=== PATIENT | female | born 1975 | race Caucasian/White ===

== ENCOUNTER 2017-11-15 11:12 | Emergency (ER) | payer OTHER ==
[~2017-11-15] VITALS: Ht 165.1 cm; Wt 49.9 kg
[2017-11-15 11:24] VITALS: BP 106/62
[2017-11-15 13:43] LABS: ABSOLUTE BASOPHIL COUNT 0 /CUMM (0.0-0.2); ABSOLUTE EOSINOPHIL COUNT 0 /CUMM (0.0-0.7); ABSOLUTE LYMPH COUNT 1.7 /CUMM (1.2-3.4); ABSOLUTE MONOCYTE COUNT 0.3 /CUMM (0.10-0.60); BASOPHIL % 0.6 % (0.0-2.0); EOSINOPHIL % 0.5 % (0-5); GRANULOCYTE % 70.3 % (42.2-75.2); HEMATOCRIT 39.9 % (37-47); MEAN CORPUSCULAR HGB CONC 33.8 G/DL (33.0-37.0); MEAN CORPUSCULAR VOLUME 97.6 FL (81.0-99.0); MEAN PLATELET VOLUME 8.1 FL (7.4-10.4); PLATELET COUNT 231 /CUMM (130-400); RED BLOOD CELL CT 4.08 /CUMM (4.20-5.40); WHITE BLOOD CELL COUNT 7.1 /CUMM (4.8-10.8)
[2017-11-16] MEDS ORDERED: BUPROPION HCL150 M4 PO (12:31)
[2017-11-16] MEDS ORDERED: METOPROLOL TART25 M1 PO (13:41)
== END 2017-11-15 15:28 | disposition admitted as inpatient to this hospital (09) ==
LOC: ERH 11:12
PROVIDERS: Physician Assistant
DX: R07.9 Chest pain, unspecified (principal)
CPT/HCPCS: 93005; 93010; 99281

== ENCOUNTER 2017-11-16 09:50 | Emergency (ER) | payer OTHER ==
[~2017-11-16] VITALS: Ht 165.1 cm; Wt 49.9 kg
--- NOTE | 2017-11-16 12:15 | ED CARDIAC/CP/PALPITATIONS ---
History of Present Illness General Chief Complaint: Chest Pain Stated Complaint: PALPITATIONS/CP Source: patient Exam Limitations: no limitations Allergies Coded Allergies: NO KNOWN ALLERGIES (03/15/13) Reconcile Medications Bupropion HCl (Bupropion HCl Sr) 150 MG TABLET.ER 1 TAB PO BID MENTAL HEALTH (Reported) Triage Note: C/O PALPITATIONS AND CP X 3 DAYS. PT STATES SHE FEELS HER HEART RACING THEN SHARP PAIN IN HER CHEST. PT STATES HX OF WPW AND SHE FEELS THIS MAY BE AN EPISODE OF THAT OR A PANIC ATTACK Triage Nurses Notes Reviewed? 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 She gets episodes where feels anxious , lightheaded, heart racing with subsequent chest pain and out of breath. Denies any numbness/tingling sensation during episodes. 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 Doesn't have a aerospace mechanic or seen one in the past. Describes her chest pain as substernal, located in the center, without any aggravating or relieving factors, no radiation. States she get out of breath during episodes. Currently denies chest pain or palpitations. Her blood pressure normally runs in the 80s systolics. Currently 100/60 which she feels is higher than what she normally runs. (Carmelo JONES,[facility]) Vital Signs & Intake/Output Vital Signs & Intake/Output Vital Signs Date Time Temp Pulse Resp B/P B/P Pulse O2 O2 Flow FiO2 Mean Ox Delivery Rate 11/16 1321 97.4 90 18 103/60 100 11/16 1001 97.3 84 20 100/60 97 Room Air (Priscilla JONES,Deonte Oden) Past History Travel History Traveled to [place] past 21 day No Medical History Any Pertinent Medical History? see below for history Cardiovascular: WPW Psychiatric: depression Surgical History Surgical History: none Psychosocial History What is your primary language Lao Tobacco Use: Current Daily Use Daily Tobacco Use Amount/Type: => 5 Cigarettes daily ETOH Use: occasional use Illicit Drug Use: denies illicit drug use Family History Hx Contributory? No (Anthony Rhodes MD) Review of Systems Review of Systems Constitutional: Denies: chills, fever. EENTM: Reports: no symptoms. Respiratory: Reports: short of breath. Denies: cough. Cardiovascular: Reports: chest pain, palpitations. GI: Denies: abdominal pain, nausea, vomiting. Genitourinary: Reports: no symptoms. Musculoskeletal: Reports: no symptoms. Skin: Reports: no symptoms. Neurological/Psychological: Reports: anxiety, headache. Hematologic/Endocrine: Reports: no symptoms. (Anthony Rhodes MD) Physical Exam Physical Exam General Appearance: well developed/nourished, no apparent distress, alert, awake Head: atraumatic, normal appearance Eyes: Bilateral: normal appearance. Respiratory: normal breath sounds, chest non-tender, lungs clear Cardiovascular: regular rate/rhythm Gastrointestinal: soft, non-tender Extremities: no edema Neurologic/Psych: awake, alert, oriented x 3 Skin: intact, normal color Core Measures ACS in differential dx? No CVA/TIA Diagnosis No Sepsis Present: No Sepsis Focused Exam Completed? No (Anthony Rhodes MD) Progress Differential Diagnosis: atrial fibrillation, WPW syndrome, sinus tachycardia Initial ED EKG: NSR (Anthony Rhodes MD) Plan of Care: Orders Procedure Date/time Status Heart Healthy Diet 11/16 D Active TROPONIN LEVEL 11/16 1205 Complete EKG 11/16 0951 Active Laboratory Tests 11/16/17 1213: Troponin I < 0.01 (Priscilla JONES,Deonte Oden) Departure Departure Time of Disposition: 1330 Disposition: HOME OR SELF CARE Condition: Stable Clinical Impression Primary Impression: WPW (Tyipb-Ggwdisngi-Xsjao syndrome) Referrals: Lana Stark MD Additional Instructions: Please follow up with your primary care physician and aerospace mechanic within one week of discharge. Departure Forms: Customer Survey General Discharge Information (Anthony Rhodes MD) Resident Co-Sign Statement Statement: ED Attending supervision documentation- [X] I saw and evaluated the patient. I have also reviewed all the pertinent lab results and diagnostic results. I agree with the findings and the plan of care as documented in the Resident's documentation. [] I have reviewed the ED Record and agree with the Resident's documentation. [] Additions or exceptions (if any) to the Resident's note and plan are summarized below: [] (Priscilla JONES,Deonte Oden) Critical Care Note Critical Care Note Critical Care Time: non-applicable (Carmelo JONES,Anthony)
[2017-11-16] MEDS ORDERED: BUPROPION HCL150 M4 PO (12:31)
[2017-11-16 13:21] VITALS: BP 103/60
[2017-11-16] MEDS ORDERED: METOPROLOL TART25 M1 PO (13:41)
== END 2017-11-16 14:01 ==
LOC: ERH 09:50
DX: I45.6 Pre-excitation syndrome (principal); R07.2 Precordial pain
CPT/HCPCS: 93005; 93010